=== PATIENT | female | born 1975 | race Caucasian/White ===

== ENCOUNTER → 2019-04-09 | Outpatient (CLI) | payer BC ==
--- NOTE | 2019-04-09 11:09 | US ---
EXAMINATION TYPE: US gallbladder DATE OF EXAM: 04/09/2019 COMPARISON: NONE CLINICAL HISTORY: 43-year-old female R10.11 Rt upper quadrant pain. RUQ pain, nausea for 3 days TECHNIQUE: Multiple sonographic images of the right upper quadrant are obtained. FINDINGS: EXAM MEASUREMENTS: Liver Length: 15.8 cm Gallbladder Wall: 0.2 cm CBD: 0.3 cm Right Kidney: 10.9 x 4.8 x 4.9 cm Pancreas: Obscured by bowel gas Liver: wnl Gallbladder: no evidence of stones. No abnormal distention, wall thickening, or surrounding fluid. Evidence for sonographic Hinson's sign: no CBD: wnl Right Kidney: no evidence of hydronephrosis or mass IMPRESSION: Suboptimal visualization of the pancreas. Otherwise, unremarkable sonographic examination of the righ t upper quadrant.
== END | disposition home or self-care (01) ==
LOC: RADUSWWP 09:53
PROVIDERS: ATTEND Physician Assistant
DX: R10.11 Right upper quadrant pain (principal)
CPT/HCPCS: 76705